=== PATIENT | male | born 1955 | race Caucasian/White ===

== ENCOUNTER → 2016-10-04 | Outpatient (CLI) | payer OTHER ==
[2016-10-04 08:03] LABS: HEMATOCRIT 40.8 % (42.0-52.0); HEMOGLOBIN 14.4 gm/dL (14.0-18.0); MCH 34.5 pg (26.0-34.0); MCHC 35.4 g/dL (28.0-37.0); MCV 97.3 fL (80.0-100.0); RBC 4.19 mil/uL (4.50-6.00); RDW 13.4 % (10.5-14.5); WBC 8.9 thou/uL (4.0-11.0)
[2016-10-04 08:16] LABS: CALCIUM 9.5 mg/dL (8.5-10.1); CREATININE 2.1 mg/dL (0.7-1.3)
[2016-10-04 08:23] LABS: TOTAL BILIRUBIN 0.9 mg/dL (<0.1-1.0); TOTAL PROTEIN 7.1 g/dL (6.4-8.2)
== END ==
LOC: CAT 07:28
PROVIDERS: Internal Medicine Infectious Disease
DX: I48.91 Unspecified atrial fibrillation (principal)

== ENCOUNTER 2016-10-16 06:34 | Observation (INO) | payer OTHER ==
[~2016-10-16] VITALS: Ht 182.9 cm; Wt 80.3 kg
--- NOTE | ~2016-10-16 | CATHLAB ---
[facility] [address] [address] INVASIVE PROCEDURE REPORT Name: NEHAL CORMIER Room #: 218-P ADM IN M.R.#: [id number] Admission: 10/16/16 Attend Phys: Silver Salvador Discharge: Date of : 53 Date of Service: 10/16/16 1547 Report #: [id number] THIS REPORT FOR: //name// APPROVED REPORT Patient Location: Room #: Stress Nurse: GOMEZIB ABLATION Informed consent: The patient underwent informed consent. We discussed the details of the procedure including the need for transseptal access. We also discussed the risks of the procedure which include but are not limited to bleeding vascular damage cardiac perforation damage to the tuscarora conduction system requiring pacemaker as well as stroke or [place]. The patient understood these risks and is willing to proceed. Anesthesia: The patient underwent general anesthesia which was performed by the anesthesiology service. There were no anesthesia related complications. Procedure: Patient was brought to the EP laboratory in a fasting nonsedated state and underwent general anesthesia performed by the anesthesiology service. Next I injected 10 mL of lidocaine to the right femoral groin region and obtained access to the right femoral vein 3 and placed sheaths using the modified Salinger technique. I placed a 8 Russian 9 Russian and 7 Russian locking sheath. Under fluoroscopy, I placed a [employer] decapolar catheter into the coronary sinus and an [employer] Brooks ICE catheter into the right atrium. I took detailed pictures of the left atrium left atrial appendage and pulmonary veins. Next the patient was systemically heparinized. Next, I exchanged the 8 Russian short sheath for a SL 1 sheath and a Balis needle. Transeptal was somewhat challenging. Although his intra-atrial septum was not particularly thickened, it appeared to be calcified. I came on with a Balis needle in several sites but the sheath would not cross into the left atrium. I was able to advance a wire into the left atrium and then I took the cryo-sheath and dilated the interatrial septum and then was able to advance the SL 1 sheath after I had dilated up. I removed the SL 1 sheath and a was able to eventually pass the cryo-sheath into the left atrium. [facility] [address] [place] [address] INVASIVE PROCEDURE REPORT Name: NEHAL CORMIER Room #: 218-P [facility] ..#: [id number] Admission: 10/16/16 Attend Phys: Silver Salvador Discharge: Date of : 53 Date of Service: 10/16/16 1547 Report #: [id number] At baseline, the patient was in sinus rhythm with a sinus cycle length of 1015 ms urine for 185 ms QRS duration 85 ms QT interval 415 ms. Next I performed to freezes in the left superior pulmonary vein. The left superior pulmonary vein isolated within 70 seconds of the first freeze. I performed a four-minute freeze in a three-minute freeze in the left superior pulmonary vein. Isolated within 70 seconds of the first freeze. I performed a four-minute freeze and a three-minute freeze. I performed to 4 minute freezes in the right superior pulmonary vein and this vein isolated within 80 seconds of the second freeze.. I performed a four-minute freeze as well as a three-minute freeze. Phrenic nerve pacing was performed from the decapolar catheter placed in the superior vena cava. There was never any phrenic nerve compromise. Post ablation findings: Post ablation, the patient remained in sinus rhythm with a sinus cycle length of 945 ms, [place] interval 175 ms QRS duration 85 ms QT interval 425 ms. Post ablation, he pulmonary veins were re-interrogated and there was persistence of isolation of all the veins. Using intracardiac ultrasound, I verified that there was no pericardial effusion. As such, the procedure was terminated. The patient received a 5 mg test dose of protamine followed by an additional 75 mg of protamine. Once the ACT was within acceptable range, catheters and sheaths were pulled and hemostasis was obtained. There are no complications nor significant bleeding. The patient awoke neurologically and hemodynamically intact. Conclusion 1. Successful atrial fibrillation ablation utilizing the cryoablation balloon with isolation of the pulmonary veins. <ELECTRONICALLY SIGNED> By: Silver Salvador MD 10/16/16 1547 1547 1547 Silver Salvador MD /INF
--- NOTE | ~2016-10-16 | EKG ---
[address] [address] ELECTROCARDIOGRAM REPORT Name: NEHAL CORMIER Room #: 218-[facility]#: [id number] Admission: 10/16/16 Attend Phys: Silver Salvador MD Discharge: 10/17/16 Date of : 53 Report #: [id number] THIS REPORT FOR: //name// [facility] Test Date: 2016-10-17 Test Time: 06:21:51 Pat Name: NEHAL CORMIER Department: Room: 218 Gender: M Cord Cutter: : 1955 Requested By: Silver Salvador Order Number: [id number] MD: Mike Bautista Measurements Intervals [place] Rate: 70 P: 38 NM: 185 QRS: -12 QRSD: 97 T: 38 QT: 400 QTc: 432 Interpretive Statements Sinus rhythm Atrial premature complex Borderline ST elevation No previous ECG available for comparison Electronically Signed On 10-17-2016 10:55:19 CDT by Mike Bautista [email or web address] <ELECTRONICALLY SIGNED> By: Mike Bautista MD, [facility] 10/17/16 1055 0 0 Mike Bautista MD, [facility] /EPI
[2016-10-16 07:10] VITALS: BP 147/95
[2016-10-16 07:13] LABS: ABSOLUTE NEUTROPHILS 4.2 thou/uL (1.4-8.2); BASOPHILS 0.4 % (0.0-2.0); EOSINOPHILS 3.7 % (0.0-3.0); HEMATOCRIT 43.4 % (42.0-52.0); HEMOGLOBIN 15.4 gm/dL (14.0-18.0); LYMPHOCYTES 27.7 % (24.0-44.0); MCH 34.8 pg (26.0-34.0); MCHC 35.4 g/dL (28.0-37.0); MCV 98.4 fL (80.0-100.0); MONOCYTES 9.3 % (1.0-8.0); PLATELET COUNT 197 thou/uL (150-400); POLYS 58.9 % (36.0-66.0); RBC 4.42 mil/uL (4.50-6.00); RDW 13.3 % (10.5-14.5); WBC 7.2 thou/uL (4.0-11.0)
[2016-10-16 07:21] LABS: MANUAL DIFF NO
[2016-10-16] MEDS ORDERED: COREG25 MG PO (07:24)
[2016-10-16] MEDS ORDERED: PRADAXA150 MG PO (07:25)
[2016-10-16] MEDS ORDERED: DEPO-TESTO200 MG/1 M INJECTION (07:30)
[2016-10-16] MEDS ORDERED: LEVOTHYROXIN0.125 M1 PO (07:31)
[2016-10-16] MEDS ORDERED: COZAAR 50 MG TA50 M2 PO (07:32)
[2016-10-16] MEDS ORDERED: LATUDA20 MG PO (07:33)
[2016-10-16 07:34] LABS: CALCIUM 9.7 mg/dL (8.5-10.1); CREATININE 2.2 mg/dL (0.7-1.3); POTASSIUM 3.9 mmol/L (3.5-5.1)
[2016-10-16] MEDS ORDERED: MOBIC7.5 MG PO (07:34)
[2016-10-16] MEDS ORDERED: CIALIS5 MG PO (07:35)
[2016-10-16] MEDS ORDERED: HALCION0.25 MG PO (07:36)
[2016-10-16] MEDS ORDERED: TRAMADOL 50 MG50 MG PO (07:37)
[2016-10-16 07:38] LABS: ALBUMIN 4.3 g/dL (3.4-5.0); TOTAL BILIRUBIN 1.1 mg/dL (<0.1-1.0); TOTAL PROTEIN 7.8 g/dL (6.4-8.2)
[2016-10-16 15:00] VITALS: BP 148/105
[2016-10-16 19:27] VITALS: BP 145/97
[2016-10-16 23:23] VITALS: BP 165/111
[2016-10-17 07:15] VITALS: BP 135/97
[2016-10-17 07:37] LABS: CALCIUM 8.8 mg/dL (8.5-10.1); CREATININE 1.9 mg/dL (0.7-1.3); POTASSIUM 4.2 mmol/L (3.5-5.1)
[2016-10-17 08:46] VITALS: BP 135/97
[2016-10-17 10:16] VITALS: BP 135/97
== END 2016-10-17 10:10 | disposition home or self-care (01) ==
LOC: CATH 06:34 → 2N 13:19
PROVIDERS: Internal Medicine Cardiovascular Disease
DX: I48.91 Unspecified atrial fibrillation (principal); I10 Essential (primary) hypertension; E03.9 Hypothyroidism, unspecified; F31.9 Bipolar disorder, unspecified; E29.9 Testicular dysfunction, unspecified; R94.31 Abnormal electrocardiogram [ECG] [EKG]; F10.10 Alcohol abuse, uncomplicated; F17.200 Nicotine dependence, unspecified, uncomplicated
CPT/HCPCS: 62110; 62900; 65020; 65040; 65043; 70005

== ENCOUNTER → 2017-04-25 | Outpatient (CLI) | payer OTHER ==
[~2017-04-25] MED LIST: CIALIS5 MG PO; COREG25 MG PO; COZAAR 50 MG TA50 M2 PO; DEPO-TESTO200 MG/1 M INJECTION; HALCION0.25 MG PO; LATUDA20 MG PO; LEVOTHYROXIN0.125 M1 PO; MOBIC7.5 MG PO; PRADAXA150 MG PO; TRAMADOL 50 MG50 MG PO
--- NOTE | ~2017-04-25 | 2DMMODE ---
[facility] [address] [place] [address] 2 D/M-MODE ECHOCARDIOGRAM Name: GENIANEHAL MUSTAFA Room #: REG [facility]#: [id number] Admission: 04/25/17 Attend Phys: Silver Salvador Discharge: Date of : 53 Date of Service: 04/25/17 1245 Report #: [id number] THIS REPORT FOR: //name// APPROVED REPORT Study performed: 04/25/2017 11:11:09 EXAM: Comprehensive 2D, Doppler, and color-flow Echocardiogram Patient Location: Out-Patient Room #: Echo lab Status: routine BSA: 2.04 HR: 63 bpm BP: 156/110 mmHg Other Information Study Quality: Good Indications Atrial Fibrillation Hypertension/HDD 2D Dimensions RVDd: 36.26 mm LVEF(%): 56.12 (>50%) IVSd: 11.13 (7-11mm) LVOT Diam: 20.05 (18-24mm) LVDd: 43.81 mm PWd: 10.53 (7-11mm) Ascending Ao: 34.66 (22-36mm) LVDs: 31.06 (25-40mm) Aortic Root: 36.13 mm IVC: 23.00 mm Hughes's LVEF: 56.12 % Volumes Left Atrial Volume (Systole) Single Plane 4CH: 38.62 mL Single Plane 2CH: 48.47 mL LA ESV Index: 25.00 mL/m2 Aortic Valve AoV Peak Milo.: 1.01 m/s AO Peak Gr.: 4.10 mmHg LVOT Max P.51 mmHg LVOT Max V: 0.94 m/s ELIZABETH Vmax: 2.92 cm2 Mitral Valve E/A Ratio: 0.8 MV Decel. Time: 295.75 ms [facility] [place] [address] 2 D/M-MODE ECHOCARDIOGRAM Name: NEHAL CORMIER Room #: REG [facility].#: [id number] Admission: 04/25/17 Attend Phys: Silver Salvador Discharge: Date of : 53 Date of Service: 04/25/17 1245 Report #: [id number] MV E Max Milo.: 0.63 m/s MV A Milo.: 0.77 m/s MV PHT: 85.77 ms IVRT: 166.09 ms Pulmonary Valve PV Peak Milo.: 0.97 m/s PV Peak Gr.: 3.79 mmHg Pulmonary Vein P Vein S: 0.56 m/s P Vein A: 0.34 m/s P Vein D: 0.29 m/s P Vein A Dur.: 129.2 msec P Vein S/D Ratio: 1.93 Tricuspid Valve TR Peak Milo.: 2.26 m/s TR Peak Gr.: 20.39 mmHg PA Pressure: 30.00 mmHg Left Ventricle The left ventricle is normal size. There is normal LV segmental wall motion. There is normal left ventricular wall thickness. The left ventricular systolic function is normal. The left ventricular ejection fraction is within the normal range. LVEF is 55-60%. Grade I - abnormal relaxation pattern. Right Ventricle The right ventricle is normal size. The right ventricular systolic function is normal. Atria The left atrium size is normal. The right atrium size is normal. Aortic Valve Aortic valve is calcified. Trace aortic regurgitation. There is no aortic valvular stenosis. Mitral Valve The mitral valve is normal in structure. Trace to mild mitral regurgitation. No evidence of mitral valve stenosis. Tricuspid Valve The tricuspid valve is normal in structure. There is trace tricuspid regurgitation. Estimated PAP 30 mmHg. There is no pulmonary hypertension. [address] [address] 2 D/M-MODE ECHOCARDIOGRAM Name: NEHAL CORMIER Room #: REG [facility]#: [id number] Admission: 04/25/17 Attend Phys: [facility] Discharge: Date of : 53 Date of Service: 04/25/17 1245 Report #: [id number] Pulmonic Valve The pulmonary valve is normal in structure. There is no pulmonic valvular regurgitation. Great Vessels The aortic root is normal in size. IVC is dilated and collapses >50% with inspiration. Pericardium There is no pericardial effusion. <Conclusion> The left ventricular systolic function is normal. There is normal LV segmental wall motion. LVEF 55-60%. Grade I diastolic dysfunction Aortic valve is calcified. Trace aortic regurgitation, no stenosis. The mitral valve is normal in structure. Trace to mild mitral regurgitation. There is trace tricuspid regurgitation. Estimated pulmonary artery pressure of 30 mmHg. There is no pericardial effusion. <ELECTRONICALLY SIGNED> By: Mike Bautista MD, FACC 04/25/17 1245 1245 1245 Mike Bautista MD, FACC /INF
== END ==
LOC: CV 10:51
DX: I48.91 Unspecified atrial fibrillation (principal); I10 Essential (primary) hypertension